=== PATIENT | male | born 1950 | race Caucasian/White ===

== ENCOUNTER 2018-01-22 06:21 | Inpatient (IN) | payer OTHER, MEDICARE ==
[~2018-01-22] VITALS: Ht 167.6 cm; Wt 72.1 kg
[~2018-01-22 06:21] MED LIST: ADVAIR 500/501 EA INH; AMLODIPINE BESY10 MG PO; ASPIRIN CHEW81 MG PO; FLOMAX0.4 MG PO; SPIRIVA18 MCG INH; TYLENOL WITH C1 EACH PO; ZYRTEC10 M3 PO
--- OUTSIDE RECORDS SUMMARY | 2018-01-22 06:23 | XMS REPORT ---
Author Author [facility] Address Unknown Phone Unavailable Care Team Providers Care Jointer Machine Name Role Phone SHANELL MEDRANO Unavailable Unavailable Problems This patient has no known problems. Allergies, Adverse Reactions, Alerts This patient has no known allergies or adverse reactions. Medications This patient has no known medications. Results Test Description Test Time Test Comments Text Results Atomic Results Result Comments CT ABDOMEN/PELVIS WO [place] [address] Patient Name: GERSON BURNETT MR #: [id number] : 1950 Age/Sex: 67/M Req #: [id number] Adm Physician: SHANELL MEDRANO MD Ordered by: GRETCHEN ZEPEDA MD Report #: [id number] Location: [facility] Room/Bed: [place] [address] Procedure: [id number] CT/CT ABDOMEN/PELVIS WO Exam Date: 08/01/17 Exam Time: 0900 REPORT STATUS: Signed PROCEDURE: CT ABDOMEN AND PELVIS WITHOUT CONTRAST TECHNIQUE: The abdomen and pelvis were scanned utilizing a multidetector helical scanner from the diaphragm to the lesser trochanter after the oral administration of water. No intravenous contrast was administered per referring physician request. Coronal and sagittal multiplanar reformations were obtained. COMPARISON: 05/05/2016. INDICATIONS: GROIN PAIN FINDINGS: ABSENCE OF INTRAVENOUS CONTRAST DECREASES SENSITIVITY FOR DETECTION OF FOCAL LESIONS AND VASCULAR PATHOLOGY. LOWER THORAX: Mild emphysematous changes. Linear opacities in the lower lobes, right greater than left, unchanged and compatible with fibrotic changes. HEPATOBILIARY: No focal hepatic lesions. No biliary ductal dilatation. SPLEEN : No splenomegaly. PANCREAS: No focal masses or ductal dilatation. ADRENALS: No adrenal nodules. KIDNEYS/URETERS: Left hydroureteronephrosis described on the comparison examination has resolved. The left kidney is diminutive. Bilateral perinephric fat stranding. No renal, ureteral, or bladder calculi. PELVIC ORGANS/BLADDER: Prostatomegaly with mass effect upon the bladder base. Multiple pelvic phleboliths. Urinary bladder is well distended and is otherwise unremarkable. Moderate left hydrocele. PERITONEUM / RETROPERITONEUM: No free air or fluid. LYMPH NODES: No pelvic sidewall, retroperitoneal, or mesenteric lymphadenopathy. VESSELS: There is atherosclerotic calcification of the abdominal aorta, major branch vessels , and iliac arterial systems without aneurysmal dilatation. Accessory left lower pole renal artery arises from the low abdominal aorta just above the bifurcation. Evaluation is otherwise limited in the absence of intravenous contrast. GI TRACT: The large bowel shows no evidence of distention or wall thickening. There are a few diverticula scattered along the course of the sigmoid colon without inflammatory change. The appendix is normal. There is no small bowel dilatation to suggest obstruction. BONES AND SOFT TISSUES: No focal soft tissue abnormalities. No osseous destructive lesions. Multilevel degenerative disc changes and facet arthropathy of the lumbar spine, with interval progression of disease at L4-L5, with near-complete loss of the intervertebral disc space. IMPRESSION: Moderate left hydrocele seen to better advantage on comparison scrotal ultrasound performed earlier 08/01/2017. Otherwise no acute intra-abdominal or pelvic CT abnormalities. Interval resolution of moderate left hydroureteronephrosis. Atherosclerotic vascular disease. Large bowel diverticulosis without evidence of diverticulitis. Significant interval progression of degenerative disc changes involving L4-L5 relative to 05/05/2016. Mild pulmonary emphysematous changes. Dictated by: Paul Hamm M.D. on 08/01/2017 at 9:55 Electronically approved by: Paul Hamm M.D. on 08/01/2017 at 9:55 Dictated By: PAUL HAMM MD 4 Transcribed By: YOUSIF on 08/01/17954 COPY TO: GRETCHEN ZEPEDA MD US TESTICULAR DOPPLER LTD [facility] [address] [place] [address] Patient Name: GERSON BURNETT MR #: [id number] : 1950 Age/Sex: 67/M Req #: [id number] Adm Physician: Ordered by: ADARSH FLANNERY MD Report #: [id number] Location: ER Room/Bed: Procedure: [id number] US/US TESTICULAR DOPPLER LTD Exam Date: 08/01/17 Exam Time: 0408 REPORT STATUS: Signed EXAM: US TESTICULAR, US TESTICULAR DOPPLER LTD DATE: 08/01/2017 12:00 AM Time stamp on exam: 0408 hours INDICATION: Pain since this morning COMPARISON: None TECHNIQUE: Grayscale and color Doppler images of the testicles and scrotal contents were obtained. Duplex imaging with spectral waveform analysis was performed of the right and left testicular arterial and venous flow. FINDINGS: RIGHT: The right testicle measures 4.8 x 2.5 x 2.7 cm. No testicular masses. Normal flow by color doppler and spectral waveform analysis of the artery and vein. Normal appearance of the epididymis. No hydrocele or variocele. LEFT: The left testicle measures 4.6 x 3.1 x 3 cm. No testicular masses. Increased vascularity of the epididymis and testicle. Moderate hydrocele with septations. IMPRESSION: Findings consistent with left epididymal-orchitis with associated moderate hydrocele with septations. Signed by: Dr. Odessa Peacock M.D. on 2016 4:57 AM Dictated By: ODESSA PEACOCK MD 6 Transcribed By: BRIANNA on 08/01/17456 COPY TO: ADARSH FLANNERY MD US TESTICULAR [facility] [address] [place] [address] Patient Name: GERSON BURNETT MR #: [id number] : 1950 Age/Sex: 67/M Req # : [id number] Adm Physician: Ordered by: ADARSH FLANNERY MD Report #: [id number] Location: ER Room/Bed: Procedure: [id number] US/US TESTICULAR Exam Date: 08/01/17 Exam Time: 0408 REPORT STATUS: Signed EXAM: US TESTICULAR, US TESTICULAR DOPPLER LTD DATE: 08/01/2017 12:00 AM Time stamp on exam: 0408 hours INDICATION: Pain since this morning COMPARISON: None TECHNIQUE: Grayscale and color Doppler images of the testicles and scrotal contents were obtained. Duplex imaging with spectral waveform analysis was performed of the right and left testicular arterial and venous flow. FINDINGS: RIGHT: The right testicle measures 4.8 x 2.5 x 2.7 cm. No testicular masses. Normal flow by color doppler and spectral waveform analysis of the artery and vein. Normal appearance of the epididymis. No hydrocele or variocele. LEFT: The left testicle measures 4.6 x 3.1 x 3 cm. No testicular masses. Increased vascularity of the epididymis and testicle. Moderate hydrocele with septations. IMPRESSION: Findings consistent with left epididymal- orchitis with associated moderate hydrocele with septations. Signed by: Dr. Odessa Peacock M.D. on 08/01/2017 4:57 AM Dictated By : ODESSA PEACOCK MD 6 Transcribed By: BRIANNA on 08/01/17456 COPY TO: ADARSH FLANNERY MD
[2018-01-22] MEDS ORDERED: ALBUTEROL SULF 0.083% NEB SOLN 3 ML NEB NEB STA (06:52)
[2018-01-22] MEDS ORDERED: ASPIRIN 81 MG CHEW TAB PO ONE (07:00)
[2018-01-22] MEDS ORDERED: COMBIVENT RESPIM4 GM IH (07:06)
[2018-01-22] MEDS ORDERED: GUAIFENESI100 MG/5 M PEG (07:06)
[2018-01-22 07:10] LABS: BASOPHILS # (AUTO) 0.1 (0.0-0.1); BASOPHILS % 0.3 % (0.0-1.0); EOSINOPHILS # (AUTO) 0.5 (0.0-0.4); EOSINOPHILS % 2.5 % (0.0-6.0); HEMOGLOBIN 14.2 g/dL (14.0-18.0); LYMPHOCYTES # (AUTO) 2.8 (1.0-3.2); LYMPHOCYTES % 15.4 % (18.0-39.1); MEAN CORPUSCULAR HEMOGLOBIN 28.1 pg (28-32); MEAN CORPUSCULAR VOLUME 85.1 fL (81-99); MONOCYTES # (AUTO) 1.4 (0.2-0.8); MONOCYTES % 7.7 % (4.4-11.3); NEUTROPHILS # (AUTO) 13.3 (2.1-6.9); NEUTROPHILS % 73.7 % (38.7-80.0); PLATELET COUNT 271 x10e3/uL (140-360); RED BLOOD COUNT 5.05 x10e6/uL (4.3-5.7); RED CELL DISTRIBUTION WIDTH 14.6 % (11.7-14.4)
[2018-01-22 07:22] LABS: ALANINE AMINOTRANSFERASE 19 IU/L (0-55); ALBUMIN 3.6 g/dL (3.5-5.0); ALKALINE PHOSPHATASE 95 IU/L (40-150); ANION GAP 13.1 mmol/L (8-16); BLOOD UREA NITROGEN 20 mg/dL (7-26); BUN/CREATININE RATIO 13 (6-25); CALCIUM 9.4 mg/dL (8.4-10.2); CARBON DIOXIDE 26 mmol/L (22-29); CHLORIDE 105 mmol/L (98-107); CREATINE KINASE 110 IU/L (30-200); CREATININE, SERUM 1.56 mg/dL (0.72-1.25); EST GLOMERULAR FILTRATION RATE 44 ML/MIN (60-); GLUCOSE 128 mg/dL (74-118); POTASSIUM 4.1 mmol/L (3.5-5.1); SODIUM 140 mmol/L (136-145)
--- NOTE | 2018-01-22 07:42 | Diagnostic Imaging Report ---
PROCEDURE: CHEST SINGLE (PORTABLE) COMPARISON: None. INDICATIONS: SHORTNESS OF BREATH, PNEUMOTHORAX FINDINGS: LUNGS: No consolidations or edema. PLEURA: Complete pneumothorax on the left. HEART \T\ MEDIASTINUM: The heart is within normal size-limits. No shift of the mediastinum. BONES \T\ SOFT TISSUES: No associated rib fractures. ER physician notified of these findings on 01/22/2018 at 7:41 AM. CONCLUSION: Large left pneumothorax. Bertin Guan D.O. Dictated by: Bertin Guan D.O. on 01/22/2018 at 7:43 Electronically approved by: Bertin Guan D.O. on 01/22/2018 at 7:43
[2018-01-22 07:53] LABS: B-TYPE NATRIURETIC PEPTIDE2 13.9 pg/mL (0-100)
[2018-01-22 08:08] LABS: CLARITY,URINE CLEAR (CLEAR); COLOR,URINE YELLOW (YELLOW); LEUKOCYTE ESTERASE ,URINE NEGATIVE (NEGATIVE); NITRITE,URINE NEGATIVE (NEGATIVE); PROTEIN,URINE DIPSTICK 1+ (NEGATIVE)
[2018-01-22 08:09] LABS: BACTERIA,URINE FEW /HPF; BILIRUBIN,URINE NEGATIVE (NEGATIVE); EPITHELIAL CELLS,URINE RARE /LPF; KETONES,URINE NEGATIVE (NEGATIVE); RBC,URINE 0-5 /HPF (0-5); URINE UROBILINOGEN 0.2 mg/dL (0.2 - 1); WBC,URINE (MAN) 0-5 /HPF (0-5)
[2018-01-22] MEDS ORDERED: MORPHINE SULFATE 2 MG/ML SYR IV STA (08:10)
[2018-01-22] MEDS ORDERED: LIDOCAINE 2% /EPINEPHRINE 20 ML SDV INJ ONE (08:15)
[2018-01-22] MEDS ORDERED: MORPHINE SULFATE 5 MG/ML VIAL IV ONE (08:15)
[2018-01-22] MEDS ORDERED: MORPHINE SULFATE 2 MG/ML SYR ONE (08:21)
[2018-01-22] MEDS ORDERED: SODIUM CHLORIDE 0.9% 1000ML 1,000 ML ONE (08:26)
--- NOTE | 2018-01-22 09:37 | Diagnostic Imaging Report ---
PROCEDURE: CHEST SINGLE (PORTABLE) COMPARISON: None. INDICATIONS: S/P CHEST TUBE PLACEMENT FINDINGS: LUNGS: Left basilar atelectasis. PLEURA: A chest tube is in place in the left base. Minimal residual left apical pneumothorax. HEART \T\ MEDIASTINUM: The heart is within normal size-limits. BONES \T\ SOFT TISSUES: No acute findings. CONCLUSION: Status post left chest tube insertion with considerable reexpansion of the large left pneumothorax. Bertin Guan D.O. Dictated by: Bertin Guan D.O. on 01/22/2018 at 9:38 Electronically approved by: Bertin Guan D.O. on 01/22/2018 at 9:38
[2018-01-22] MEDS ORDERED: SODIUM CHLORIDE FLUSH 10 ML SYR INJ PRN (10:30)
[2018-01-22] MEDS ORDERED: ONDANSETRON HCL INJ 2 MG/ML VIAL IV PRN (10:30)
[2018-01-22] MEDS ORDERED: MORPHINE SULFATE 4 MG/ML SYR IV PRN (10:30)
[2018-01-22 11:50] VITALS: BP 164/78
[2018-01-22 11:57] VITALS: BP 164/78
[2018-01-22 16:06] VITALS: BP 146/70
[2018-01-22] MEDS ORDERED: IPRATROPIUM/ALBUTEROL SULFATE 4 GM INH INH SCH (18:00)
[2018-01-22] MEDS ORDERED: ASPIRIN 81 MG CHEW TAB PO SCH (18:00)
[2018-01-22 20:00] VITALS: BP_SYST 124; BP_SYST 153; BP_DIAS 60; BP_DIAS 66
[2018-01-22] MEDS ORDERED: IPRATROPIUM/ALBUTEROL SULFATE 4 GM INH INH PRN (22:00)
[2018-01-23] VITALS (8 sets, daily range): BP systolic 126–158; BP diastolic 67–80
--- NOTE | 2018-01-23 00:52 | Consultation ---
DATE OF CONSULTATION: January 22, 2018 REASON FOR CONSULTATION: Spontaneous pneumothorax. HISTORY OF PRESENT ILLNESS: Patient is a very pleasant 67-year-old male who is very active, plays golf on a routine basis, woke up this morning feeling acute short of breath, then he tried to take his Advil without any significant relief and woke up his and subsequently was brought into ER. On arrival here, he was found to have large left-sided pneumothorax, and a chest tube was placed by ER physician, which resulted in somewhat resolution, but not complete resolution of the pneumothorax. Subsequently, pulmonary has been consulted. He tells me he has been a heavy smoker in the past, but now does not smoke anymore, he had recent CT scan done in September at the outside facility, not at [facility], hence I am not able to look at it. He states he recently recovered from pneumonia. Otherwise, he is very active. He walked 6 miles yesterday, denies any fevers, chills. During his evaluation, he does have evidence of active air leak noted in the chest tube. PAST MEDICAL HISTORY: History of COPD, hypertension, hyperlipidemia. CURRENT MEDICATIONS: Reviewed per chart. ALLERGIES: IODINE. PHYSICAL EXAMINATION: VITAL SIGNS: Temperature is 97, pulse is 90, respirations 20, blood pressure is 146/70. GENERAL: Reveals elderly male in bed, does not appear in any significant distress. HEENT: Wears corrective glasses. NECK: Supple. CVS: S1 and S2 heard. RESPIRATION: Symmetrical expansion, is clear to auscultation on both sides. He does have air leak noted in the left-sided chest tube. EXTREMITIES: Has no cyanosis, no clubbing, no edema. NEURO: Alert and oriented x3. LABS: Sodium 140, potassium 4.1, chloride is 105, CO2 is 26, BUN is 20, creatinine is 1.56. WBC 18, hemoglobin is 14.2, hematocrit 43.0, platelets 271,000. AST is 18, total bili 0.7, alk phos is 95, ALT is 19. Chest x-ray showed evidence of left-sided pneumothorax. IMPRESSION: 1. Spontaneous pneumothorax. 2. 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 3. Chest pain secondary to above. 4. Hypertension. PLAN: Reviewed patient's medications. This appears to be spontaneous pneumothorax secondary to his bullous lung disease. Since this appears to be his first episode, my plan is to wait for air leak to resolve before pulling chest tube. He currently has an active air leak with suction. Will plan on tomorrow possibly to take him off suction if chest x-ray showed complete inflation of the lung. I have ordered a CT scan to rule out any other source of subpleural bullae. I also gave him the option of talc pleurodesis which we can I think defer for now as it appears to be his first episode. Will follow up on the chest tube. Will also discuss with primary attending, Dr. Cheng Lei. Thank you for involving us in the care of your patient. All questions answered to satisfaction. Discussed with patient and his at bedside. Job#: [id number]
[2018-01-23] MEDS ORDERED: ALBUTEROL SULF 0.083% NEB SOLN 3 ML NEB NEB STA ×2 (05:45)
[2018-01-23] MEDS ORDERED: IPRATROPIUM BROMIDE 0.02% 2.5 ML NEB NEB ONE (05:45)
[2018-01-23] MEDS: TIOTROPIUM 18 MCG INH POWDER INH SCH (06:00)
--- NOTE | 2018-01-23 06:22 | Diagnostic Imaging Report ---
CHEST SINGLE (PORTABLE), 01/23/2018 5:45 AM Technique: CHEST SINGLE (PORTABLE) Comparison: None available. Clinical history: Shortness of breath Findings: See Impression Impression: Single portable view 1. Lines/Tubes: Left chest tube projects over the lower hemithorax with chest wall gas. 2. Probable small left pneumothorax, though poorly delineated. 3. Left greater than right bibasilar opacity which could reflect atelectasis, aspiration or infection. 4. Normal heart size. Mediastinum is midline. Signed by: Dr Cielo Garrett MD on 01/23/2018 6:18 AM
[2018-01-23 06:39] LABS: BASOPHILS % 0.2 % (0.0-1.0); HEMATOCRIT 40.1 % (38.2-49.6); HEMOGLOBIN 13.5 g/dL (14.0-18.0); LYMPHOCYTES # (AUTO) 1.6 (1.0-3.2); LYMPHOCYTES % 7.1 % (18.0-39.1); MEAN CORPUSCULAR HEMOGLOBIN 28.5 pg (28-32); MEAN CORPUSCULAR HGB CONC 33.7 g/dL (31-35); MEAN CORPUSCULAR VOLUME 84.8 fL (81-99); MONOCYTES # (AUTO) 1.6 (0.2-0.8); MONOCYTES % 7.2 % (4.4-11.3); NEUTROPHILS # (AUTO) 18.9 (2.1-6.9); PLATELET COUNT 287 x10e3/uL (140-360); RED BLOOD COUNT 4.73 x10e6/uL (4.3-5.7); RED CELL DISTRIBUTION WIDTH 14.3 % (11.7-14.4)
[2018-01-23] MEDS: SALMETEROL/FLUTICASONE 500/50 INH SCH ×2 (07:00→19:10)
[2018-01-23 07:13] LABS: ALBUMIN 3.3 g/dL (3.5-5.0); ANION GAP 12.6 mmol/L (8-16); CALCIUM 9.3 mg/dL (8.4-10.2); CREATININE, SERUM 1.6 mg/dL (0.72-1.25); POTASSIUM 4.6 mmol/L (3.5-5.1)
[2018-01-23 08:24] LABS: EOSINOPHILS % (MANUAL) 1 % (0-7); LYMPHOCYTES % (MANUAL) 8 % (19-48); MONOCYTES % (MANUAL) 7 % (3.4-9.0); NEUTROPHILS % (MANUAL) 84 % (40-74)
[2018-01-23 08:25] LABS: ANISOCYTOSIS SLIGHT; PLATELET ESTIMATE ADEQUATE; PLATELET MORPHOLOGY COMMENT NORMAL; RBC MORPHOLOGY COMMENT NORMAL
[2018-01-23] MEDS: GUAIFENESIN 200 MG/10 ML UDC PEG SCH (08:30)
[2018-01-23] MEDS: DOCUSATE SODIUM 100 MG CAP PO SCH ×2 (08:30→16:43)
[2018-01-23] MEDS ORDERED: TAMSULOSIN HCL 0.4 MG CAP PO SCH (09:00)
[2018-01-23] MEDS ORDERED: LORATADINE 10 MG TAB PO SCH (09:00)
[2018-01-23] MEDS ORDERED: ASPIRIN 81 MG CHEW TAB PO SCH (09:00)
[2018-01-23] MEDS ORDERED: AMLODIPINE BESYLATE 10 MG TAB PO SCH (09:00)
--- NOTE | 2018-01-23 10:42 | History and Physical ---
He is a 67-year-old male patient of mine, presented to the emergency room with a complaint of sudden onset of shortness of breath. HISTORY OF PRESENT ILLNESS: Mr. Fredy Sutton is a 67-year-old male patient with a significant history of emphysema, COPD, and lumbar abscess with a neurogenic bladder and kidney stone, had presented to the emergency room with the sudden onset of shortness of breath and left-sided and central chest pain. Patient was evaluated in the emergency room, and patient was found to have a large left pneumothorax. So, patient had a chest tube placed in the ER, which relieved his shortness of breath. ALLERGIES: PATIENT IS ALLERGIC TO IODINE AND SHRIMP. MEDICATIONS: See from the list. PAST SURGICAL HISTORY: Patient has a lumbar spine surgery for the abscess and neurogenic bladder and kidney stone. SOCIAL HISTORY: Patient is a former smoker. He denies any alcohol. REVIEW OF SYSTEMS: As per history of present illness. Patient had shortness of breath, which is better after chest tube, and mild left-sided chest pain with movement or respiration on deep respiration or cough. PHYSICAL EXAMINATION GENERAL: He is a middle-aged male patient lying in the bed, not in any acute distress. VITAL SIGNS: Temperature 98, pulse rate 100, respiration 20, blood pressure 110/70. HEENT: Normocephalic, atraumatic. NECK: No JVD. No lymphadenopathy. LUNGS: Left side slightly reduced air entry. No rales, no rhonchi present. HEART: S1 and S2, regular. ABDOMEN: Soft. Bowel sounds present. NEUROLOGIC: No focal neurological deficit. ADMITTING IMPRESSION/DIAGNOSIS 1. Acute left large pneumothorax requiring chest tube. 2. Chronic obstructive pulmonary disease. 3. Emphysema. 4. Hypertension. 5. Neurogenic bladder. 6. History of spinal abscess. PLAN: Patient will be admitted with the above diagnoses. Patient will be given IV . Patient will be having a chest tube and will be given IV analgesics. Patient has leukocytosis. Will repeat a CBC, CMP tomorrow. Patient will get the CT scan of the chest. Job#: [id number] EV
[2018-01-23] MEDS ORDERED: ACETAMINOPHEN 325 MG TAB PO PRN (12:00)
[2018-01-23] MEDS: PIPER-TAZ 3.375 GM 100 ML IV SCH ×2 (14:00→21:41)
--- NOTE | 2018-01-23 14:16 | Diagnostic Imaging Report ---
PROCEDURE: CT CHEST WITHOUT CONTRAST CT scan of the chest WITHOUT intravenous contrast, using standard protocol. TECHNIQUE: The chest was scanned utilizing a multidetector helical scanner from the apex to the level of the adrenal glands. No IV contrast was administered per protocol Coronal and sagittal multiplanar reformations were obtained. COMPARISON: [facility], DX, CHEST 2 VIEWS, 05/05/2016, 14:07. [facility], CT, CT CHEST W/O CONTRAST, 02/08/2010, 10:42. INDICATIONS: PNEUMOTHORAX FINDINGS: Lines/tubes: Left-sided chest tube with distal tip in the medial left upper lobe/lingula (series 3, image 78). Lungs and Airways: Very small residual pneumothorax remaining in the left hemithorax (for example noted anteromedially in series 3, image 42, medial aspect of the superior segment of the left lower lobe (series 3, image 41) and inferiorly (series 2, images 74 and 56). Extensive consolidation with air bronchograms involving the left lower lobe (series 3, image 76). Focal consolidation, with air bronchograms in the posteromedial right lower lobe, similar to prior CT dated 02/08/2010. There is central bronchial wall thickening in bilateral upper and lower lobes. Interval worsening of bilateral centrilobular emphysematous changes, which are now moderate to marked. Interval development of approximately 2.1 x 6.2 x 3.0 cm air and fluid containing thin-walled structure in the superior segment of the left lower lobe adjacent to the major fissure (series 3, image 51 and sagittal image 96). Focal bronchial wall thickening, with associated tree in bud opacities in the lateral posterior right upper lobe (for example series 3, images 56-58). No masses. Focal opacity in the posterior lingula consistent with atelectasis secondary to eventration of the hemidiaphragm. Pleura: No effusion. Eventration of the posterior right hemidiaphragm. Heart and mediastinum: The thyroid is unremarkable. Heart size is normal. No pericardial effusion. Atherosclerotic calcification of the coronary arteries, thoracic aorta. Slight interval increase in size of 2.1 x 3.6 x 3.6 cm well-circumscribed fluid density structure in the subcarinal region (series 2, image 67, and sagittal image 65), which previously measured approximately 1.5 x 2.8 x 3.0 cm. Lymph nodes: Stable mildly enlarged 1.2 cm short axis right lower paratracheal lymph node (series 2, image 55). Interval increase in size of prevascular lymph node (series 2, image 32), which measures 1.0 cm in short axis (previously measured as 0.7 cm). Difficult to evaluate for hilar adenopathy given the lack of intravenous contrast. Abdomen: Limited views of the upper abdomen show no abnormality within the visualized liver, spleen, pancreas. The adrenal glands are unremarkable. Bones: No aggressive lytic lesion. Degenerative disc changes in the thoracic spine. Soft tissues are grossly unremarkable. IMPRESSION: 1. left-sided chest tube has distal tip in the medial left upper lobe/lingula with very small residual pneumothorax. 2. Extensive left lower lobe consolidation/pneumonia. 3. Focal consolidation, with air bronchograms in the posterior medial right lower lobe has been present since 2010 and likely represents an area of scarring and atelectasis, however, superimposed infection is also considered. 4. Worsening of bilateral centrilobular emphysematous changes. 5. Interval development of 2.2 cm air and fluid containing thin-walled structure in the superior segment of the left lower lobe adjacent to the major fissure, which may represent a complicated paraseptal bulla or pneumatocele. 6. Slight interval increase in size of 3.6 cm low density structure in the subcarinal region, likely representing a bronchogenic cyst. 7. Slight interval increase in size of prevascular lymph node, likely reactive. Stable mildly enlarged right lower paratracheal lymph node, also likely reactive. Luc Case M.D. Dictated by: Luc Case M.D. on 01/23/2018 at 14:17 Electronically approved by: Luc Case M.D. on 01/23/2018 at 14:17
[2018-01-23] MEDS: LORATADINE 10 MG TAB PO SCH (16:43)
[2018-01-23] MEDS: TAMSULOSIN HCL 0.4 MG CAP PO SCH (16:43)
[2018-01-23] MEDS: PANTOPRAZOLE 40 MG 10ML VIAL IV SCH (19:32)
[2018-01-23] MEDS ORDERED: SODIUM CHLORIDE 0.9% 250ML 250 ML ONE (21:29)
[2018-01-24] VITALS (8 sets, daily range): BP systolic 107–132; BP diastolic 62–84
[2018-01-24] MEDS ORDERED: ASPIRIN 81 MG CHEW TAB PO SCH (05:00)
[2018-01-24] MEDS ORDERED: AMLODIPINE BESYLATE 10 MG TAB PO SCH (05:00)
[2018-01-24] MEDS: ASPIRIN 81 MG CHEW TAB PO SCH (05:33)
[2018-01-24] MEDS: PIPER-TAZ 3.375 GM 100 ML IV SCH ×3 (05:33→21:58)
[2018-01-24] MEDS: AMLODIPINE BESYLATE 10 MG TAB PO SCH (05:33)
[2018-01-24] MEDS: TIOTROPIUM 18 MCG INH POWDER INH SCH (06:00)
--- NOTE | 2018-01-24 06:14 | Diagnostic Imaging Report ---
CHEST SINGLE (PORTABLE), 01/24/2018 7:00 AM Technique: CHEST SINGLE (PORTABLE) Comparison: CT 01/23/2018 Clinical history: Pneumothorax Findings: See Impression Impression: 1. Lines/Tubes: Stable left chest tube over the lower medial hemithorax. 2. Small left pneumothorax and extensive left chest wall gas. 3. Bibasilar opacities may reflect aspiration/infection. Signed by: Dr Cielo Garrett MD on 01/24/2018 6:10 AM
[2018-01-24 06:40] LABS: BASOPHILS # (AUTO) 0.1 (0.0-0.1); BASOPHILS % 0.3 % (0.0-1.0); EOSINOPHILS # (AUTO) 0.2 (0.0-0.4); EOSINOPHILS % 1.1 % (0.0-6.0); HEMATOCRIT 36.5 % (38.2-49.6); HEMOGLOBIN 12.1 g/dL (14.0-18.0); LYMPHOCYTES # (AUTO) 1.7 (1.0-3.2); LYMPHOCYTES % 10.5 % (18.0-39.1); MEAN CORPUSCULAR HEMOGLOBIN 28.7 pg (28-32); MEAN CORPUSCULAR HGB CONC 33.2 g/dL (31-35); MEAN CORPUSCULAR VOLUME 86.5 fL (81-99); MONOCYTES # (AUTO) 1.3 (0.2-0.8); MONOCYTES % 7.8 % (4.4-11.3); NEUTROPHILS # (AUTO) 12.8 (2.1-6.9); PLATELET COUNT 250 x10e3/uL (140-360); RED BLOOD COUNT 4.22 x10e6/uL (4.3-5.7); RED CELL DISTRIBUTION WIDTH 14.6 % (11.7-14.4)
[2018-01-24 06:54] LABS: INR 1.41; PROTHROMBIN TIME 16.2 seconds (11.9-14.5)
[2018-01-24] MEDS: SALMETEROL/FLUTICASONE 500/50 INH SCH (07:00)
[2018-01-24 07:19] LABS: ALBUMIN 2.7 g/dL (3.5-5.0); ALBUMIN/GLOBULIN RATIO 0.8 (0.8-2.0); ANION GAP 12.2 mmol/L (8-16); CALCIUM 8.8 mg/dL (8.4-10.2); CREATININE, SERUM 1.52 mg/dL (0.72-1.25); POTASSIUM 4.2 mmol/L (3.5-5.1)
[2018-01-24] MEDS: MORPHINE SULFATE 2 MG/ML SYR IV PRN ×2 (08:25→14:51)
[2018-01-24] MEDS: GUAIFENESIN 200 MG/10 ML UDC PEG SCH (08:44)
[2018-01-24] MEDS: DOCUSATE SODIUM 100 MG CAP PO SCH ×2 (08:44→17:17)
[2018-01-24] MEDS: TAMSULOSIN HCL 0.4 MG CAP PO SCH (08:44)
[2018-01-24] MEDS: PANTOPRAZOLE 40 MG 10ML VIAL IV SCH ×2 (08:44→17:17)
--- NOTE | 2018-01-24 10:08 | Diagnostic Imaging Report ---
PROCEDURE: A single AP view of the chest. COMPARISON: Portable chest 01/24/2018 at 0637 hrs. INDICATIONS: CHEST TUBE LEFT LUNG FINDINGS: Lines/tubes: Chest tube projects over the left lung base. Lungs: Continued opacification of the left lung base, stable since previous examination. The right lung is clear. Pleura: No pleural effusion. No pneumothorax pneumothorax. Heart and mediastinum: The heart and the mediastinum are unremarkable. Bones: No acute bony abnormality. Soft tissues: Subcutaneous air projects over the left lateral chest wall, unchanged since previous examination. IMPRESSION: No significant change since previous examination. Dictated by: Shola Moreira M.D. on 01/24/2018 at 10:09 Electronically approved by: Shola Moreira M.D. on 01/24/2018 at 10:09
[2018-01-24] MEDS ORDERED: ONDANSETRON HCL 4 MG ORAL DISINTEGRATING TAB PO PRN (10:15)
[2018-01-24] MEDS ORDERED: VANCOMYCIN HCL 1.25 GM in SODIUM CHLORIDE 0.9% 250ML 300 ML IV SCH (15:45)
[2018-01-24] MEDS: LORATADINE 10 MG TAB PO SCH (17:17)
[2018-01-24] MEDS: VANCOMYCIN HCL 1.25 GM in SODIUM CHLORIDE 0.9% 250ML 300 ML IV SCH (17:17)
[2018-01-24] MEDS: HYDROCODONE/APAP 7.5MG-325MG 1 EA TAB PO PRN (17:45)
[2018-01-25] VITALS (8 sets, daily range): BP systolic 118–151; BP diastolic 59–74
[2018-01-25] MEDS: AMLODIPINE BESYLATE 10 MG TAB PO SCH (04:35)
[2018-01-25] MEDS: VANCOMYCIN HCL 1.25 GM in SODIUM CHLORIDE 0.9% 250ML 300 ML IV SCH (04:35)
[2018-01-25] MEDS: ASPIRIN 81 MG CHEW TAB PO SCH (04:35)
[2018-01-25] MEDS: HYDROCODONE/APAP 7.5MG-325MG 1 EA TAB PO PRN (04:38)
--- NOTE | 2018-01-25 06:24 | Diagnostic Imaging Report ---
CHEST SINGLE (PORTABLE), 01/25/2018 8:00 AM Technique: CHEST SINGLE (PORTABLE) Comparison: Previous day Clinical history: Pneumothorax Findings: See Impression Impression: 1. Lines/Tubes: Stable left chest tube over the lower medial hemithorax. 2. Persistent small left pneumothorax and extensive left chest wall gas. 3. Bibasilar opacities which again may may reflect aspiration/infection. Signed by: Dr Cielo Garrett MD on 01/25/2018 6:21 AM
[2018-01-25 06:39] LABS: BASOPHILS # (AUTO) 0.1 (0.0-0.1); BASOPHILS % 0.4 % (0.0-1.0); EOSINOPHILS # (AUTO) 0.6 (0.0-0.4); EOSINOPHILS % 4.1 % (0.0-6.0); HEMATOCRIT 33.5 % (38.2-49.6); LYMPHOCYTES # (AUTO) 1.6 (1.0-3.2); LYMPHOCYTES % 11.3 % (18.0-39.1); MEAN CORPUSCULAR HEMOGLOBIN 28.4 pg (28-32); MEAN CORPUSCULAR HGB CONC 32.8 g/dL (31-35); MEAN CORPUSCULAR VOLUME 86.6 fL (81-99); MONOCYTES # (AUTO) 1.1 (0.2-0.8); MONOCYTES % 8.2 % (4.4-11.3); NEUTROPHILS # (AUTO) 10.4 (2.1-6.9); NEUTROPHILS % 75.5 % (38.7-80.0); PLATELET COUNT 261 x10e3/uL (140-360); RED BLOOD COUNT 3.87 x10e6/uL (4.3-5.7); RED CELL DISTRIBUTION WIDTH 14.5 % (11.7-14.4)
[2018-01-25] MEDS: PIPER-TAZ 3.375 GM 100 ML IV SCH (06:46)
[2018-01-25 07:20] LABS: ALBUMIN 2.4 g/dL (3.5-5.0); ALBUMIN/GLOBULIN RATIO 0.8 (0.8-2.0); ANION GAP 11.9 mmol/L (8-16); CALCIUM 8.5 mg/dL (8.4-10.2); CREATININE, SERUM 1.47 mg/dL (0.72-1.25); POTASSIUM 3.9 mmol/L (3.5-5.1)
[2018-01-25] MEDS ORDERED: IPRATROPIUM/ALBUTEROL SULFATE 4 GM INH INH PRN (09:00)
[2018-01-25] MEDS: TAMSULOSIN HCL 0.4 MG CAP PO SCH (09:45)
[2018-01-25] MEDS: LEVOFLOXACIN 500 MG TAB PO SCH (09:45)
[2018-01-25] MEDS: PANTOPRAZOLE 40 MG 10ML VIAL IV SCH ×2 (09:45→17:00)
[2018-01-25] MEDS: DOCUSATE SODIUM 100 MG CAP PO SCH ×2 (09:45→17:00)
[2018-01-25] MEDS: GUAIFENESIN 200 MG/10 ML UDC PEG SCH (09:45)
[2018-01-25] MEDS: TIOTROPIUM 18 MCG INH POWDER INH SCH (11:01)
[2018-01-25] MEDS: SALMETEROL/FLUTICASONE 500/50 INH SCH ×2 (11:02→19:55)
--- NOTE | 2018-01-25 14:01 | Diagnostic Imaging Report ---
PROCEDURE: Frontal and lateral views of the chest. COMPARISON: None. INDICATIONS: POST CHEST TUBE REMOVAL FINDINGS: See impression. . IMPRESSION: 1. interval removal of previously visualized left-sided chest tube. Small residual apical pneumothorax. Moderate subcutaneous left chest wall air. 2. Persistent bilateral lower lung opacities, left greater than right. Luc Case M.D. Dictated by: Luc Case M.D. on 01/25/2018 at 14:02 Electronically approved by: Luc Case M.D. on 01/25/2018 at 14:02
[2018-01-25] MEDS: LORATADINE 10 MG TAB PO SCH (17:00)
[2018-01-26] VITALS (7 sets, daily range): BP systolic 121–146; BP diastolic 66–75
[2018-01-26] MEDS: ASPIRIN 81 MG CHEW TAB PO SCH (05:21)
[2018-01-26] MEDS: AMLODIPINE BESYLATE 10 MG TAB PO SCH (05:22)
[2018-01-26] MEDS: TIOTROPIUM 18 MCG INH POWDER INH SCH (08:12)
[2018-01-26] MEDS: SALMETEROL/FLUTICASONE 500/50 INH SCH ×2 (08:12→20:00)
[2018-01-26] MEDS: DOCUSATE SODIUM 100 MG CAP PO SCH ×2 (09:14→17:38)
[2018-01-26] MEDS: LEVOFLOXACIN 500 MG TAB PO SCH (09:14)
[2018-01-26] MEDS: PANTOPRAZOLE 40 MG 10ML VIAL IV SCH ×2 (09:14→17:38)
[2018-01-26] MEDS: GUAIFENESIN 200 MG/10 ML UDC PEG SCH (09:14)
[2018-01-26] MEDS: TAMSULOSIN HCL 0.4 MG CAP PO SCH (09:14)
[2018-01-26 09:44] LABS: BASOPHILS % 0.3 % (0.0-1.0); EOSINOPHILS # (AUTO) 0.5 (0.0-0.4); EOSINOPHILS % 3.5 % (0.0-6.0); HEMATOCRIT 36.4 % (38.2-49.6); HEMOGLOBIN 11.9 g/dL (14.0-18.0); LYMPHOCYTES # (AUTO) 1.4 (1.0-3.2); MEAN CORPUSCULAR HGB CONC 32.7 g/dL (31-35); MEAN CORPUSCULAR VOLUME 85.6 fL (81-99); MONOCYTES # (AUTO) 1.1 (0.2-0.8); MONOCYTES % 8.5 % (4.4-11.3); NEUTROPHILS % 76.3 % (38.7-80.0); PLATELET COUNT 336 x10e3/uL (140-360); RED BLOOD COUNT 4.25 x10e6/uL (4.3-5.7); RED CELL DISTRIBUTION WIDTH 13.9 % (11.7-14.4)
[2018-01-26] MEDS: LORATADINE 10 MG TAB PO SCH (17:38)
[2018-01-27 00:26] VITALS: BP 127/80
[2018-01-27 04:49] VITALS: BP 125/67
[2018-01-27] MEDS: ASPIRIN 81 MG CHEW TAB PO SCH (05:26)
[2018-01-27] MEDS: AMLODIPINE BESYLATE 10 MG TAB PO SCH (05:26)
[2018-01-27] MEDS: TIOTROPIUM 18 MCG INH POWDER INH SCH (06:00)
[2018-01-27 06:13] LABS: BASOPHILS # (AUTO) 0.1 (0.0-0.1); BASOPHILS % 0.5 % (0.0-1.0); EOSINOPHILS # (AUTO) 0.7 (0.0-0.4); EOSINOPHILS % 6.4 % (0.0-6.0); HEMATOCRIT 35.5 % (38.2-49.6); HEMOGLOBIN 11.7 g/dL (14.0-18.0); LYMPHOCYTES % 18.8 % (18.0-39.1); MEAN CORPUSCULAR HEMOGLOBIN 27.9 pg (28-32); MEAN CORPUSCULAR VOLUME 84.7 fL (81-99); MONOCYTES # (AUTO) 1.4 (0.2-0.8); NEUTROPHILS # (AUTO) 6.3 (2.1-6.9); NEUTROPHILS % 60.7 % (38.7-80.0); PLATELET COUNT 347 x10e3/uL (140-360); RED BLOOD COUNT 4.19 x10e6/uL (4.3-5.7); RED CELL DISTRIBUTION WIDTH 13.8 % (11.7-14.4)
[2018-01-27 06:32] LABS: ALBUMIN 2.4 g/dL (3.5-5.0); ALBUMIN/GLOBULIN RATIO 0.7 (0.8-2.0); ANION GAP 11.8 mmol/L (8-16); CALCIUM 9.2 mg/dL (8.4-10.2); CREATININE, SERUM 1.48 mg/dL (0.72-1.25); POTASSIUM 3.8 mmol/L (3.5-5.1)
[2018-01-27] MEDS: SALMETEROL/FLUTICASONE 500/50 INH SCH (07:00)
[2018-01-27 07:14] VITALS: BP 121/68
[2018-01-27 09:17] VITALS: BP 121/68
--- NOTE | 2018-01-27 09:26 | Diagnostic Imaging Report ---
Two view chest x-ray INDICATION: Pneumonia, chest tube removal COMPARISON: Chest x-ray 01/25/2018. CT chest 01/23/2018 FINDINGS: Lungs: No defined apical pneumothorax on this image. Air and fluid containing collection in the superior segment of the left lower lobe is stable. No mediastinal shift. Consolidation in the left lower lobe is stable. Patchy airspace opacities in the right midlung field and right lung base are stable. Cardiomediastinal silhouette: The pulmonary vascular markings are normal. Cardiomediastinal silhouette is stable. Soft tissues: No change in subcutaneous emphysema in the left chest wall.. IMPRESSION: 1. Stable loculated pneumothorax in the left lower lobe. No evidence of apical pneumothorax. 2. Stable left lower lobe infiltrate and subcutaneous emphysema. 3. Stable right basilar airspace opacities. Signed by: Dr. Fiona Daniel MD on 01/27/2018 9:23 AM
[2018-01-27] MEDS: GUAIFENESIN 200 MG/10 ML UDC PEG SCH (09:45)
[2018-01-27] MEDS: DOCUSATE SODIUM 100 MG CAP PO SCH (09:45)
[2018-01-27] MEDS: LEVOFLOXACIN 500 MG TAB PO SCH (09:45)
[2018-01-27] MEDS: TAMSULOSIN HCL 0.4 MG CAP PO SCH (09:45)
[2018-01-27] MEDS ORDERED: PANTOPRAZOLE SOD 40 MG TABEC PO SCH (10:15)
[2018-01-27 11:55] VITALS: BP 138/70
--- NOTE | 2018-01-28 00:47 | Discharge Summary ---
This is a 67-year-old patient of mine presented to the emergency room with sudden onset of shortness of breath. ADMITTING IMPRESSIONS/DIAGNOSES 1. Acute left large pneumothorax, almost completely collapsing the left side of the lung. 2. Chronic obstructive pulmonary disease. 3. Emphysema. 4. Hypertension. 5. Neurogenic bladder. 6. History of spinal abscess. HOSPITAL COURSE SUMMARY: Patient was admitted with above diagnoses. Patient had chest tube placed and IV analgesics were given. Patient had a leukocytosis. CT scan of the chest was done. Patient was found to have a left lower lobe pneumonia. Also, patient was treated with IV antibiotics. Patient was treated with IV Zosyn. Patient had improved significantly. Patient's chest tube was continued. Upon stabilization, patient will be discharged home on oral antibiotics _CEFTIN and doxycycline. Patient's chest tube has been removed. . Patient was hypoxic. Home oxygen arrangements have been made and patient will be discharged home with the home oxygen and oral antibiotic and patient had, during hospitalization, episode of a coffee-ground emesis. GI consultation was requested. Dr. Fish had seen the patient and the patient was treated with IV Protonix and patient will get outpatient endoscopy. Patient will be also given, on discharge PPI, Protonix. Patient was advised to follow up with me as outpatient, as well as Dr. Fish and night shift, Dr. Do or [facility]. DISCHARGE DIAGNOSES 1. Left pneumothorax. 2. Left lower lobe pneumonia, community acquired, which was complicated by the pneumothorax in a the patient with advanced chronic obstructive pulmonary disease. 3. Upper gastrointestinal bleed. 4. Mild blood loss anemia. 5. Hemoptysis. 6. Severe chronic obstructive pulmonary disease. 7. Neurogenic bladder. SHANELL MEDRANO MD Job#: [id number] CQ BE
== END 2018-01-27 14:25 | disposition home or self-care (01) | DRG 199 ==
LOC: ER 06:21 → ERHOLD 10:44 → MED/SURG3 10:46 → IMCU 01-23 17:14
PROVIDERS: ADMIT Internal Medicine; ATTEND Internal Medicine
PROC: 0W9B30Z Drainage of Left Pleural Cavity with Drainage Device, Percutaneous Approach (ICD-10-PCS; principal; 2018-01-22)
DX: J93.11 Primary spontaneous pneumothorax (principal); J18.9 Pneumonia, unspecified organism; J96.01 Acute respiratory failure with hypoxia; N17.9 Acute kidney failure, unspecified; K92.0 Hematemesis; Z99.81 Dependence on supplemental oxygen; J44.0 Chronic obstructive pulmonary disease with (acute) lower respiratory infection; J44.1 Chronic obstructive pulmonary disease with (acute) exacerbation; D62 Acute posthemorrhagic anemia; R04.2 Hemoptysis; J43.9 Emphysema, unspecified; I10 Essential (primary) hypertension; N31.9 Neuromuscular dysfunction of bladder, unspecified; E78.5 Hyperlipidemia, unspecified; Z87.891 Personal history of nicotine dependence; J98.4 Other disorders of lung; Z79.82 Long term (current) use of aspirin
CPT/HCPCS: 36415; 51700; 71045; 71046; 71250; 80053; 81001; 82550; 82553; 83605; 83880; 84484; 85025; 85610; 85730; 87040; 87070; 87205; 93005; 94640; 99284; J2001; J2270; J2405; J2543; J3370; J7030; J7050

== ENCOUNTER → 2018-03-15 | Outpatient (CLI) | payer OTHER ==
[~2018-03-15] MED LIST changes: +COMBIVENT RESPIM4 GM IH; +GUAIFENESI100 MG/5 M PEG
--- NOTE | 2018-03-15 18:32 | Diagnostic Imaging Report ---
PROCEDURE: CT CHEST WITHOUT CONTRAST CT scan of the chest WITHOUT intravenous contrast, using standard protocol. TECHNIQUE: The chest was scanned utilizing a multidetector helical scanner from the apex to the level of the adrenal glands. No IV contrast was administered. Coronal and sagittal multiplanar reformations were obtained. COMPARISON: 01/23/2018 INDICATIONS: COPD FINDINGS: Lines/tubes: None. Lungs and Airways: Moderate centrilobular emphysema. A 2.2 x 3.6 cm oval lesion along the left major fissure (series 3, image 49) measures fluid density and likely represents loculated fluid within the fissure. A 4.0 x 3.3 cm extrapulmonary air collection, also along the left major fissure (series 3, image 64) probably represents a posttraumatic or postinfectious pneumatocele. Interstitial thickening and scar like opacities in the lower lobes, at the site of previous consolidation. Scarlike opacities at the posterior lateral aspect of the right upper lobe (series 3, image 54). Very small, centrilobular nodules in the right lung base (series 3, image 96) measuring up to 3 mm. These are likely post infectious. 5 mm groundglass nodule in the right upper lobe (series 3, image 54) appears new since the prior examination. Pleura: The pleural spaces are clear. Heart and mediastinum: The thyroid gland is normal. 1.2 cm pretracheal lymph node (series 2, image 50) is unchanged. Other subcentimeter mediastinal and axillary lymph nodes are also unchanged. The heart and pericardium are within normal limits. Atherosclerotic calcifications of the thoracic aorta and coronary arteries. Previously described presumed bronchogenic cyst is no longer visualized. Soft tissues: Normal. Abdomen: Atherosclerotic calcifications of the aorta and its branches. There is mild ectasia of the celiac artery, measuring up to 1.3 cm. Bones: Multilevel degenerative changes of the thoracic spine. IMPRESSION: 1. There has been significant interval improvement since 01/23/2018. The previously described areas of consolidation in the lung bases have nearly resolved. There are residual scarlike opacities in the lower lobes and posterolateral aspect of the right upper lobe. 2. A 3.6 cm oval lesion along the left major fissure measures fluid density and likely represents loculated fluid within the fissure. Recommend followup radiographs to ensure resolution. 3. Interval development of a 4.0 cm extrapulmonary air collection, also along the left major fissure. This probably represents a posttraumatic or postinfectious pneumatocele. 4. Very small nodules in the right lung base and right upper lobe which are probably infectious. Consider followup CT in 6 months to ensure resolution. 5. Stable small mediastinal lymph nodes. Dictated by: Brooks Meyer M.D. on 03/15/2018 at 18:35 Electronically approved by: Brooks Meyer M.D. on 03/15/2018 at 18:35
== END ==
LOC: CT 16:54
PROVIDERS: ATTEND Internal Medicine
DX: J44.0 Chronic obstructive pulmonary disease with (acute) lower respiratory infection (principal)
CPT/HCPCS: 71250

== ENCOUNTER 2025-01-21 07:10 | Emergency (ER) | payer MEDICARE, OTHER ==
[~2025-01-21] VITALS: Ht 167.6 cm; Wt 66.7 kg
[2025-01-21 07:15] VITALS: TEMP 97.6
[2025-01-21 07:36] LABS: BASOPHILS # (AUTO) 0.1 (0.0-0.1); BASOPHILS % 0.5 % (0.0-1.0); EOSINOPHILS # (AUTO) 0.3 (0.0-0.4); EOSINOPHILS % 1.2 % (0.0-6.0); HEMATOCRIT 46.1 % (38.2-49.6); HEMOGLOBIN 15.7 g/dL (14.0-18.0); LYMPHOCYTES % 8.6 % (18.0-39.1); MEAN CORPUSCULAR HEMOGLOBIN 29.7 pg (28-32); MEAN CORPUSCULAR HGB CONC 34.1 g/dL (31-35); MEAN CORPUSCULAR VOLUME 87.3 fL (81-99); MONOCYTES # (AUTO) 1.2 (0.2-0.8); NEUTROPHILS # (AUTO) 19.6 (2.1-6.9); NEUTROPHILS % 84.1 % (38.7-80.0); PLATELET COUNT 329 x10e3/uL (140-360); RED BLOOD COUNT 5.28 x10e6/uL (4.3-5.7); RED CELL DISTRIBUTION WIDTH 13.4 % (11.7-14.4); WHITE BLOOD COUNT 23.29 x10e3/uL (4.8-10.8)
[2025-01-21] MEDS ORDERED: DICYCLOMINE HCL 20 MG/2 ML VIAL IM ONE (07:56)
[2025-01-21] MEDS ORDERED: ONDANSETRON HCL INJ 2MG/ML 2ML 2 MG/ML VIAL ONE (07:56)
[2025-01-21] MEDS ORDERED: SODIUM CHLORIDE 0.9% 1000ML 1,000 ML ONE (07:57)
[2025-01-21] MEDS: SODIUM CHLORIDE 0.9% 1000ML 1,000 ML IV STA (08:00)
[2025-01-21] MEDS: ONDANSETRON HCL INJ 2MG/ML 2ML 2 MG/ML VIAL IV PRN (08:01)
[2025-01-21] MEDS: DICYCLOMINE HCL 20 MG/2 ML VIAL IM ONE (08:02)
[2025-01-21 08:06] LABS: ALBUMIN 3.8 g/dL (3.5-5.0); ALBUMIN/GLOBULIN RATIO 1.3 (0.8-2.0); ANION GAP 15.4 mmol/L (8-16); CALCIUM 8.5 mg/dL (8.4-10.2); CREATININE, SERUM 1.46 mg/dL (0.72-1.25); POTASSIUM 4.4 mmol/L (3.5-5.1); TOTAL PROTEIN 6.7 g/dL (6.5-8.1)
[2025-01-21] MEDS ORDERED: IOPAMIDOL 370 MG/ML 100 ML INFUS..BTL INJ ONE (08:13)
[2025-01-21 09:13] VITALS: PULSE 63; RESP 20; O2SAT 98
[2025-01-21] MEDS ORDERED: OMEPRAZOLE40 MG PO (09:31)
[2025-01-21] MEDS ORDERED: DICYCLOMINE HCL20 MG PO (09:31)
[2025-01-21 09:50] LABS: BILIRUBIN,URINE NEGATIVE (NEGATIVE); CLARITY,URINE CLEAR (CLEAR); COLOR,URINE YELLOW (YELLOW); GLUCOSE, URINE NEGATIVE (NEGATIVE); KETONES,URINE NEGATIVE (NEGATIVE); NITRITE,URINE NEGATIVE (NEGATIVE); PH,URINE 5.5 (5 - 7); PROTEIN,URINE DIPSTICK TRACE (NEGATIVE); URINE UROBILINOGEN 0.2 mg/dL (0.2 - 1)
[2025-01-21 09:51] LABS: BACTERIA,URINE FEW /HPF; LEUKOCYTE ESTERASE ,URINE TRACE (NEGATIVE); RBC,URINE 0-5 /HPF (0-5)
[2025-01-21 09:52] LABS: EPITHELIAL CELLS,URINE FEW /LPF
== END 2025-01-21 09:50 | disposition home or self-care (01) ==
LOC: ER 07:16
DX: R10.13 Epigastric pain (principal); K29.70 Gastritis, unspecified, without bleeding; N39.0 Urinary tract infection, site not specified; J44.9 Chronic obstructive pulmonary disease, unspecified; N31.9 Neuromuscular dysfunction of bladder, unspecified; E78.00 Pure hypercholesterolemia, unspecified; Z85.828 Personal history of other malignant neoplasm of skin
CPT/HCPCS: 36415; 74177; 80053; 81001; 83690; 84484; 85025; 93005; 99284; J0500; J2405; J2470; J7030; Q9967